=== PATIENT | male | born 1970 | race Caucasian/White ===

== ENCOUNTER 2023-09-28 13:15 | Emergency (ER) | payer OTHER, SELFPAY ==
[2023-09-28 13:21] VITALS: BP 141/93
[2023-09-28 13:56] LABS: % Basophils 0.7 % (0-2); % Eosinophils 1.3 % (0-6); % Immature Granulocytes 0.1 % (0-0.5); % Monocytes 7.6 % (1.7-9.3); % Neutrophils 67.3 % (42.2-75.2); Absolute Basophils 0.1 10^3/uL (0-0.2); Absolute Eosinophils 0.1 10^3/uL (0-0.7); Absolute Lymphocytes 1.5 10^3/uL (1.2-3.4); Absolute Monocytes 0.5 10^3/uL (0.1-0.6); Absolute Neutrophils 4.5 10^3/uL (1.4-6.5); Hemoglobin 14.6 g/dL (13.0-18.0); Mean Corp Hgb Conc. 36.5 g/dL (33.0-37.0); Mean Corpuscular Hgb 32.7 pg (27.0-31.0); Mean Corpuscular Volume 89.5 fL (80.0-94.0); Mean Platelet Volume 11.5 fL (7.4-10.4); Nucleated Red Blood Cells % 0 % (-); Platelet Count 244 10^3/uL (130-400); Red Blood Cell Count 4.47 10^6/uL (4.70-6.10); Red Cell Dist. Width 11.8 % (11.5-14.5); White Blood Cell Count 6.7 10^3/uL (4.8-10.8)
[2023-09-28 14:23] LABS: ALT (SGPT) 20 U/L (0-50); AST (SGOT) 25 U/L (17-59); Albumin 4.6 g/dl (3.5-5.0); Alkaline Phosphatase 102 U/L (38-126); Blood Urea Nitrogen 15 mg/dl (9-20); Calcium 9.6 mg/dl (8.4-10.2); Carbon Dioxide 23 mmol/L (22-30); Chloride 106 mmol/L (98-107); Glucose 197 mg/dl (70-99); Potassium 4.2 mmol/L (3.5-5.1); Sodium 137 mmol/L (135-145); Total Bilirubin 0.7 mg/dl (0.2-1.3); Total Protein 7.3 g/dl (6.3-8.2); eGFR > 60.00
[2023-09-28 14:57] LABS: TSH 1.58 uIU/ml (0.47-4.68)
[2023-09-28 15:10] VITALS: BMI 33.9
[2023-09-28 15:13] VITALS: BP 126/99
--- NOTE | 2023-09-28 15:43 | ED.GENMED ---
History of Present Illness
<Mellissa Diaz PA-C - Last Filed: 09/28/23 23:25>
General
Chief Complaint: Heart Rate Problem
Source: patient
Exam Limitations: none
Time Seen by Provider: 09/28/23 15:01
Nursing documentation reviewed up to this point in time: agreed with
History of Present Illness
History of Present Illness:
Patient is a 52M with history atrial fibrillation presenting to the emergency department for evaluation of heart palpitations. Patient states around 7 AM he woke up and he rolled over in bed and felt an acute onset heart palpitation. He checked
his pulse and believes that it was irregular. Patient decided at that time to take one of his Eliquis that he had had prescribed for many years ago. Patient denies any associated chest pain, shortness of breath, lightheadedness, weakness, or
numbness/tingling of lower extremities.
Of note�patient has been noticing some intermittent dizziness over the past 2 weeks. He did sustain a fall 3 weeks ago where he struck his left flank on the kitchen counter. He has been seen by both his primary care and urgent care since the fall
due to the bruising on his left leg. Patient states bruising is now resolving and pain is much more manageable. Patient denies any changes in urinary patterns, hematuria, changes in bowel patterns. He denies any abdominal pain.
Patient does have a history of atrial fibrillation in the past. He had an ablation done in 2021 and has had no episodes of A-fib since that he knows of. He was told to stop his Eliquis after the ablation.
Past History
<Mellissa Diaz PA-C - Last Filed: 09/28/23 23:25>
Past History
ED Past Medical History: HTN
ED Past Surgical History: None
Social History
Tobacco: Former smoker
Alcohol: Binge drinker
Drug: None
Personal:
Living: with family
Employment: Employed
Review of Systems
<Mellissa Diaz PA-C - Last Filed: 09/28/23 23:25>
Review of Systems
Allergies reviewed?: Yes
All Other Systems: ROS reviewed and negative except as documented in HPI and ROS
Phy Exam
<Mellissa Diaz PA-C - Last Filed: 09/28/23 23:25>
Physical Exam
Physical Exam:
Vitals: Mildly hypertensive, otherwise vital signs stable. Afebrile
General: Patient is well appearing, no acute distress. Nontoxic-appearing
Skin: Warm and dry, no rashes or lesions. Large healing ecchymosis to left flank
Head: Normocephalic, atraumatic
Eyes: Sclera nonicteric. EOMs intact. No nystagmus.
Throat: Protecting airway
Neck: Normal ROM, no cervical spine tenderness, no meningismus. No JVD
Cardiac: Irregular rhythm, regular rate no murmurs.
Pulm: Normal respiratory effort, no wheezes, rales, rhonchi heard on exam.
Abdomen: Abdomen soft. No abdominal tenderness. No rebound tenderness or guarding. No CVA tenderness
Extremities: No evidence of cyanosis or edema. Great distal pulses. Strength 5 out of 5 in upper and lower extremities
Neuro: AAOx3. CN II-XII intact. No focal neurologic deficits. Sensation fully intact
Psychiatric: Normal affect.
Course
<Mellissa Diaz PA-C - Last Filed: 09/28/23 23:25>
Orders/Labs/Results
Orders:
Orders
09/28/23 13:17
ECG [Electrocardiogram (*1)] Urgent
Reason for Study: Atrial Fibrillation
EKG- Treatment ONCE
09/28/23 13:33
Complete Blood Count/With Diff Urgent
Comprehensive Metabolic Panel Urgent
TSH Urgent
09/28/23 16:29
Diltiazem HCl [Cardizem] 10 mg IV NOW STA
09/28/23 18:12
Apixaban [Eliquis] 5 mg PO NOW STA
Abnormal Lab Results
09/28/23
13:33
RBC 4.47 L 10^6/uL
(4.70-6.10)
MCH 32.7 H pg
(27.0-31.0)
MPV 11.5 H fL
(7.4-10.4)
Glucose 197 H mg/dl
(70-99)
09/28/23 13:33
09/28/23 13:33
Vital Signs
Initial and Last Documented VS:
Initial Vital Signs
Temp Pulse Resp BP Pulse Ox
97.5 F 94 16 141/93 97
09/28/23 13:21 09/28/23 13:21 09/28/23 13:21 09/28/23 13:21 09/28/23 13:21
Last Documented Vital Signs
Temp Pulse Resp BP Pulse Ox
97.5 F 87 12 123/86 95
09/28/23 13:21 09/28/23 18:30 09/28/23 18:30 09/28/23 18:00 09/28/23 18:30
<Medardo Multani, - Last Filed: 09/28/23 15:59>
Orders/Labs/Results
Orders:
Orders
09/28/23 13:17
ECG [Electrocardiogram (*1)] Urgent
Reason for Study: Atrial Fibrillation
EKG- Treatment ONCE
09/28/23 13:33
Complete Blood Count/With Diff Urgent
Comprehensive Metabolic Panel Urgent
TSH Urgent
09/28/23 16:29
Diltiazem HCl [Cardizem] 10 mg IV NOW STA
09/28/23 18:12
Apixaban [Eliquis] 5 mg PO NOW STA
Abnormal Lab Results
09/28/23
13:33
RBC 4.47 L 10^6/uL
(4.70-6.10)
MCH 32.7 H pg
(27.0-31.0)
MPV 11.5 H fL
(7.4-10.4)
Glucose 197 H mg/dl
(70-99)
09/28/23 13:33
09/28/23 13:33
Vital Signs
Initial and Last Documented VS:
Initial Vital Signs
Temp Pulse Resp BP Pulse Ox
97.5 F 94 16 141/93 97
09/28/23 13:21 09/28/23 13:21 09/28/23 13:21 09/28/23 13:21 09/28/23 13:21
Last Documented Vital Signs
Temp Pulse Resp BP Pulse Ox
97.5 F 87 12 123/86 95
09/28/23 13:21 09/28/23 18:30 09/28/23 18:30 09/28/23 18:00 09/28/23 18:30
<Mellissa Diaz PA-C - Last Filed: 09/28/23 23:25>
MDM/Problems Addressed
Differential Diagnosis Includes:
Not limited to: Atrial fibrillation, other cardiac arrhythmia, dehydration, viral illness, anxiety
MDM/Problems Addressed:
52-year-old male with history A-fib presenting to the emergency department with reported heart palpitations. Found to be in relatively well rate controlled atrial fibrillation on arrival. Patient denies any associated chest pain, shortness of
breath, or lightheadedness. Patient with history of cardiac ablation in 2021 and discontinued Eliquis at this time. Currently not anticoagulated. Has follow-up scheduled [employer] next week for routine visit. Patient's vital signs are stable
on arrival. Physical exam as above. Heart rhythm irregular although normal rate. Lungs clear bilaterally. Patient has great distal pulses. No focal neurologic deficits. He does have a healing ecchymosis of his left leg which is from a fall
that occurred about 3 weeks ago. Abdomen is soft and nontender. Low suspicion for acute intra-abdominal injury. EKG obtained in triage does show atrial fibrillation with a rate around 100 bpm. Labs were obtained in triage showed no acute
abnormalities. Patient is hemodynamically stable and essentially asymptomatic. Although patient does believe atrial fibrillation started this morning around 7 AM with onset of heart palpitations�given patient is anticoagulated did discuss risk of
stroke with cardioversion. Decision was made to give 10 mg bolus IV Cardizem.
Went to reassess patient following IV Cardizem. Rate has decreased slightly to 79 although patient does remain in atrial fibrillation. Blood pressure stable. Will hold off on cardioversion given patient's unknown onset of atrial fibrillation.
Will restart patient on Eliquis 5 mg twice daily. Did touch base with [employer] on-call to have patient seen in office either tomorrow or early next week. Return precautions discussed at length with patient. Patient walking out of emergency
department without any difficulty
Chronic conditions affecting care:
Atrial fibrillation
Acute Exacerbation and/or Progression of Chronic Illness:
Atrial fibrillation with controlled ventricular response
<Mellissa Diaz PA-C - Last Filed: 09/28/23 23:25>
*Pulse Oximetry
Patient hypoxic: no
*EKG
Interpreted by ED Provider?: Yes
EKG Intrepretation Date: 09/28/23
Interpretation: abnormal
Comparison EKG: changes noted
Heart Rate: 101
Rate: tachycardiac
Rhythm: a-fib
[place]: normal axis
Ischemia: non-specific ST changes
*Watch Crystal Molder Interpretation
Rate: normal
Interpretation: abnormal
Heart Rate: 86
Rhythm: a-fib
*Critical Care Note
Total Time (30-74mins, 75-104mins- exclusive of procedures): Not Applicable
ED Attending Note
<Mellissa Diaz PA-C - Last Filed: 09/28/23 23:25>
-
Portions of this chart may have been created with voice recognition software.� Occasional wrong word or��sound alike� substitutions may have occurred due to the inherent limitations of voice recognition software.
<Medardo Multani DO - Last Filed: 09/28/23 15:59>
ED Attending Note
Patient seen and examined by attending physician: Yes
I performed the substantive portion of visit, reviewed & personally made and approve the management plan that is documented in note by myself or OSKAR.: Yes
Discharge Plan
Departure
Patient Disposition: Home (Routine Discharge)
Date of Disposition: 09/28/23
Time of Disposition: 18:13
Patient with high blood pressure during this ER visit?: Yes
Condition: Good
Covid-19: Not Applicable
Discharge Problem:
Atrial fibrillation with controlled ventricular rate
Instructions: Atrial Fibrillation (DC), Apixaban, BLOOD PRESSURE
Prescriptions:
New
Eliquis 5 mg tablet
5 mg PO BID 30 Days Qty: 60 0RF
No Action
diltiazem HCl 120 MG capsule,extended release 24hr
120 mg PO DAILY Qty: 30 3RF
Eliquis 5 MG tablet
5 mg PO BID
metoprolol succinate 100 mg Tablet Extended Release 24 Hr
100 mg PO BID
pantoprazole [pantoprazole] 40 mg tablet,delayed release (DR/EC)
40 mg PO DAILY Qty: 14 0RF
Rx Instructions:
Take daily for 2 weeks post ablation, then stop
Referrals:
Alvarado Grimes DO [Family Provider] -
Alvarado Wharton MD [Active] - Next open appointment
Activity Restrictions/Additional Instructions:
RETURN TO THE EMERGENCY DEPARTMENT WITH ANY CHEST PAIN, SHORTNESS OF BREATH, RACING HEARTBEAT, DIZZINESS/LIGHTHEADEDNESS, BLEEDING, HEADACHE, WEAKNESS/ NUMBNESS IN LOWER EXTREMITIES, WORSENING IN CURRENT SYMPTOMS, OR ANY OTHER CONCERNS
-As discussed�it is important you take your Eliquis twice a day. Stay well-hydrated. Continue to take all other medications as prescribed.
-It is important that you follow-up with your [employer] for further evaluation/management. They should be contacting you to schedule a follow-up appointment shortly. If you do not hear from them you should call the office.
-If you feel as if your heart rate has increased significantly you should return to the emergency department for evaluation.
Monitor your symptoms closely and do not hesitate to return with any acute worsening/new symptoms
Interventions
Interventions:
*Risk Screen - Suicide Last Done: 09/28/23 13:21
*General Assessment Last Done: 09/28/23 13:21
*Neglect/Abuse Screening Last Done: 09/28/23 13:21
ED- Fall Risk Assessment Last Done: 09/28/23 15:15
*ED COVID-19 Vaccine History Last Done: 09/28/23 13:21
*Nursing Disposition Last Done: 09/28/23 19:02
ED- Cardiac Assessment Last Done: 09/28/23 15:14
ED- Pulmonary Assessment Last Done: 09/28/23 15:14
Discharge Date and Time
Discharge Date/Time: 09/28/23 19:02
Print Language: [email or web address]
[2023-09-28 16:00] VITALS: BP 135/98
[2023-09-28] MEDS: CARDIZEM 10 MG IV (16:55)
[2023-09-28 17:00] VITALS: BP 132/92
[2023-09-28 18:00] VITALS: BP 123/86
[2023-09-28] MEDS: ELIQUIS 5 MG PO (18:39)
== END 2023-09-28 19:02 | disposition home or self-care (01) ==
LOC: EMR 13:15
PROVIDERS: Emergency Medicine; EMERGENCY PHYSICIAN Emergency Medicine; FAMILY PHYSICIAN Family Medicine
DX: I48.91 Unspecified atrial fibrillation (principal); I10 Essential (primary) hypertension; Z87.891 Personal history of nicotine dependence; Z91.81 History of falling; Z91.018 Allergy to other foods; Z91.048 Other nonmedicinal substance allergy status
CPT/HCPCS: 99284; 96374; 80053; 84443; 85025; 93005